=== PATIENT | female | born 1955 ===

== ENCOUNTER 2025-04-05 06:17 | Day surgery (SDC) | payer BC ==
[2025-03-27 15:58] VITALS: BMI 25.7
[2025-04-05 09:03] VITALS: TEMP 97.9
[2025-04-05 09:33] VITALS: PULSE 60
[2025-04-05 09:40] VITALS: BP 130/65; RESP 13
== END 2025-04-05 09:55 | disposition home or self-care (01) ==
LOC: JASU-ENDO 06:17
PROVIDERS: ATTEND Internal Medicine Gastroenterology
PROC: 0DBP8ZX Excision of Rectum, Via Natural or Artificial Opening Endoscopic, Diagnostic (ICD-10-PCS; principal; 2025-04-05 08:00)
DX: Z12.11 Encounter for screening for malignant neoplasm of colon (principal); D12.8 Benign neoplasm of rectum
CPT/HCPCS: 88305-TC